=== PATIENT | female | born 1980 | race Caucasian/White ===

== ENCOUNTER 2017-12-20 08:58 | Emergency (ER) | payer MEDICAID ==
[~2017-12-20] VITALS: Ht 162.6 cm; Wt 71.0 kg
[2017-12-20] MEDS ORDERED: ASPIRIN 81MG TABLET PO ONE (10:00)
[2017-12-20] MEDS ORDERED: MECLIZINE 25MG TABLET PO ONE (10:00)
[2017-12-20 10:15] LABS: BASOPHILS % 1.1 % (0.0-2.0); EOSINOPHILS % 2.1 % (0.0-5.0); HEMATOCRIT. 40.3 % (36.0-48.0); HEMOGLOBIN. 13.8 g/dL (12.0-16.0); LYMPHOCYTES % 25.9 % (20.0-50.0); MEAN CORPUSCULAR HEMOGLOBIN 31.4 pg (28.0-32.0); MEAN CORPUSCULAR VOLUME 91.9 fL (81.0-99.0); MEAN PLATELET VOLUME 9.2 fl (7.4-10.4); MONOCYTES % 6.6 % (2.0-8.0); NEUTROPHILS % 64.3 % (40.0-76.0); PLATELET 248 x1000/uL (130-400); RED BLOOD CELL COUNT 4.39 mill/uL (4.2-5.4); RED CELL DISTRIBUTION WIDTH 12.3 % (11.6-14.6)
[2017-12-20 10:17] LABS: CLARITY URINE CLEAR (CLEAR); COLOR URINE YELLOW (YELLOW); KETONES URINE NEGATIVE (NEGATIVE); LEUKOCYTE ESTERASE URINE NEGATIVE (NEGATIVE); NITRITE URINE NEGATIVE (NEGATIVE); OCCULT BLOOD URINE NEGATIVE (NEGATIVE); PROTEIN URINE NEGATIVE (NEGATIVE); SPECIFIC GRAVITY URINE 1.009 (1.005-1.030); UROBILINOGEN URINE 0.2 E.U./dL (0.2-1.0)
[2017-12-20 10:18] LABS: CHLORIDE 109 mEq/L (98-107)
[2017-12-20 10:24] LABS: D-DIMER 0.32 mg/L FEU (<0.50); PARTIAL THROMBOPLASTIN TIME 29.2 sec (23.4-31.0); PROTHROMBIN TIME 10.5 sec (9.4-11.6)
[2017-12-20 10:48] LABS: *AMPHETAMINES SCREEN URINE NEGATIVE (NEGATIVE); *BARBITURATES SCREEN URINE NEGATIVE (NEGATIVE); *BENZODIAZEPINES SCREEN URINE NEGATIVE (NEGATIVE); *COCAINE SCREEN URINE NEGATIVE (NEGATIVE)
[2017-12-20 10:49] LABS: CANNABINOID URINE SCREEN NEGATIVE (NEGATIVE); METHADONE URINE SCREEN NEGATIVE (NEGATIVE); OPIATES URINE SCREEN NEGATIVE (NEGATIVE); PHENCYCLIDINE URINE SCREEN NEGATIVE (NEGATIVE)
[2017-12-20 12:26] VITALS: BP 104/56
== END 2017-12-20 12:29 | disposition home or self-care (01) ==
LOC: ER 08:58
DX: R07.2 Precordial pain (principal); H81.10 Benign paroxysmal vertigo, unspecified ear; M79.605 Pain in left leg; M79.604 Pain in right leg
CPT/HCPCS: 36415; 71045; 80053; 80305; 81003; 81025; 82962; 83690; 83880; 84484; 85025; 85379; 85610; 85730; 93005; 93970; 99285; J8597

== ENCOUNTER 2021-01-11 08:15 | Emergency (ER) | payer BC, MEDICAID ==
[~2021-01-11] VITALS: Ht 160 cm; Wt 82.0 kg
[2021-01-11] MEDS ORDERED: IBUPROFEN 600MG TABLET PO STA (08:55)
[2021-01-11 09:06] VITALS: BP 114/68
[2021-01-11] MEDS ORDERED: IBUP-2029 MT (11:13)
== END 2021-01-11 11:37 | disposition home or self-care (01) ==
LOC: ER 08:15
DX: B34.9 Viral infection, unspecified (principal)
CPT/HCPCS: 71045; 99283

== ENCOUNTER 2022-04-11 12:50 | Emergency (ER) | payer MEDICAID ==
[~2022-04-11] VITALS: Ht 162.6 cm; Wt 80.0 kg
[~2022-04-11 12:50] MED LIST: IBUP-2029 MT
[2022-04-11 15:30] LABS: BASOPHILS % 0.9 % (0.0-2.0); EOSINOPHILS % 1.7 % (0.0-5.0); HEMATOCRIT. 40.3 % (36.0-48.0); HEMOGLOBIN. 13.7 g/dL (12.0-16.0); MEAN CORPUSCULAR HEMOGLOBIN 31.4 pg (28.0-32.0); MEAN CORPUSCULAR VOLUME 92.4 fL (81.0-99.0); MEAN PLATELET VOLUME 9.8 fl (7.4-10.4); MONOCYTES % 6.9 % (2.0-8.0); NEUTROPHILS % 67.5 % (40.0-76.0); PLATELET 252 x1000/uL (130-400); RED BLOOD CELL COUNT 4.37 mill/uL (4.2-5.4); RED CELL DISTRIBUTION WIDTH 12.7 % (11.6-14.6)
[2022-04-11 15:36] LABS: CHLORIDE 105 mEq/L (98-107)
[2022-04-11 15:41] LABS: PROTHROMBIN TIME 10.5 sec (9.6-11.0)
[2022-04-11 15:57] LABS: HCG SCREEN NEGATIVE
[2022-04-11] MEDS ORDERED: ACETAMINOPHEN 325MG TABLET PO ONE (18:15)
[2022-04-11] MEDS ORDERED: IBUPROFEN 400MG TABLET PO ONE (18:15)
[2022-04-11 21:36] VITALS: BP 120/72
== END 2022-04-11 21:38 | disposition home or self-care (01) ==
LOC: ER 13:16
DX: R10.31 Right lower quadrant pain (principal); N83.291 Other ovarian cyst, right side
CPT/HCPCS: 36415; 76830; 76856; 76857; 80053; 84703; 85025; 93976; 99284

== ENCOUNTER 2023-06-11 18:30 | Emergency (ER) | payer MEDICAID ==
[~2023-06-11] VITALS: Ht 160 cm; Wt 91.0 kg
[2023-06-11 18:44] VITALS: BP 132/66; TEMP 97.9; O2SAT 100
[2023-06-11 18:46] VITALS: PULSE 87; RESP 18
[2023-06-11] MEDS ORDERED: ONDANSETRON 4MG ODT PO STA (20:24)
[2023-06-11] MEDS ORDERED: MAGNESIUM/ALUMINUM HYDROXIDE/SIMETHICONE 30ML UDC PO STA (20:24)
[2023-06-11] MEDS ORDERED: FAMOTIDINE 20MG TABLET PO ONE (20:30)
[2023-06-11 21:02] LABS: BASOPHILS % 0.9 % (0.0-2.0); EOSINOPHILS % 1.9 % (0.0-5.0); HEMATOCRIT. 39.4 % (36.0-48.0); HEMOGLOBIN. 13.4 g/dL (12.0-16.0); LYMPHOCYTES % 24.9 % (20.0-50.0); MEAN CORPUSCULAR HEMOGLOBIN 30.9 pg (28.0-32.0); MEAN CORPUSCULAR HGB CONC 33.9 g/dL (31.0-37.0); MEAN CORPUSCULAR VOLUME 91.1 fL (81.0-99.0); MEAN PLATELET VOLUME 9.5 fl (7.4-10.4); MONOCYTES % 6.4 % (2.0-8.0); NEUTROPHILS % 65.9 % (40.0-76.0); PLATELET 250 x1000/uL (130-400); RED BLOOD CELL COUNT 4.32 mill/uL (4.2-5.4); RED CELL DISTRIBUTION WIDTH 12.5 % (11.6-14.6); WHITE BLOOD COUNT 11.5 x1000/uL (4.5-11.0)
[2023-06-11 21:29] LABS: CHLORIDE 106 mEq/L (98-107); INDEX HEMOLYSI 1 (1-3); INDEX ICTERIC 1 (1-4); INDEX LIPEMIC 1 (1-3); POTASSIUM 3.6 mEq/L (3.5-5.1); SODIUM 137 mEq/L (136-145)
[2023-06-11 21:37] LABS: ALANINE AMINOTRANSFERASE 87 IU/L (13-61); ALBUMIN 3.6 g/dL (3.4-5.0); ASPARTATE AMINOTRANSFERASE 33 IU/L (15-37); BILIRUBIN TOTAL 0.6 mg/dL (0.1-1.0); CALCIUM 9.5 mg/dL (8.5-10.1); CARBON DIOXIDE 29 mEq/L (21-32); CREATININE 0.7 mg/dL (0.6-1.3); GLUCOSE 102 mg/dL (70-105); PROTEIN TOTAL 7.5 g/dL (6.0-8.3); UREA NITROGEN BLOOD 12 mg/dL (7-21)
[2023-06-11 21:41] LABS: HCG SCREEN NEGATIVE
[2023-06-11] MEDS ORDERED: MAGNESIUM/ALUMINUM HYDROXIDE/SIMETHICONE 30ML UDC PO NR (23:45)
[2023-06-11] MEDS ORDERED: FAMOTIDINE 20MG TABLET PO NR (23:45)
[2023-06-11] MEDS ORDERED: ONDANSETRON 4MG ODT PO NR (23:45)
[2023-06-11] MEDS ORDERED: FAMO-134 MT (23:57)
[2023-06-11] MEDS ORDERED: MAG355OR21 MT (23:57)
== END 2023-06-11 23:54 | disposition home or self-care (01) ==
LOC: ER 18:30
DX: K21.9 Gastro-esophageal reflux disease without esophagitis (principal); Z90.49 Acquired absence of other specified parts of digestive tract; Z98.890 Other specified postprocedural states
CPT/HCPCS: 99284; 80053; 84703; 83690; 85025; 36415; Q0162